=== PATIENT | male | born 1945 | race Caucasian/White ===

== ENCOUNTER 2020-11-13 12:39 | Emergency (ER) | payer MEDICARE ==
--- NOTE | 2020-11-13 13:42 | EDM.PDOC ---
ED HPI GENERAL MEDICAL PROBLEM - General Chief Complaint: ENT Problem Stated Complaint: SORE THROAT,TIRED Time Seen by Provider: 11/13/20 13:25 Source of Information: Reports: Patient History Limitations: Reports: Other (incomplete records) - History of Present Illness INITIAL COMMENTS - FREE TEXT/NARRATIVE: 75 yo male presents with a cough that is occasionally productive, a sore throat that is worse with coughing, no fever, and mild nasal congestion. No fever or SOB. Sx's slowly getting worse over the past couple of weeks. He has not been seen in the clinic for this. Now has some bilat eye redness. No sneezing. Onset: Gradual Duration: Week(s): (2), Getting Worse Location: Reports: Face, Neck, Chest Quality: Reports: Burning (with coughing) Severity: Mild Improves with: Reports: Medication Worsens with: Reports: Other (time) Context: Reports: Other (see HPI) Associated Symptoms: Reports: Cough. Denies: Chest Pain, Fever/Chills, Shortness of Breath Treatments FREIGHT FLAGMAN: Reports: Other (see below) (none) - Related Data Allergies Allergy/AdvReac Type Severity Reaction Status Date / Time No Known Allergies Allergy Verified 11/13/20 13:44 ED ROS ENT - Review of Systems Review Of Systems: See Below Constitutional: Reports: No Symptoms HEENT: Reports: Eye Discharge (with redness), Rhinitis (mostly clear), Throat Pain. Denies: Ear Discharge, Ear Pain, Nosebleed Respiratory: Reports: Cough, Sputum. Denies: Shortness of Breath, Wheezing, Pleuritic Chest Pain, Hemoptysis Cardiovascular: Reports: No Symptoms GI/Abdominal: Reports: No Symptoms Skin: Reports: No Symptoms Neurological: Reports: No Symptoms ED EXAM, ENT - Physical Exam Exam: See Below Exam Limited By: No Limitations General Appearance: Alert, WD/WN, No Apparent Distress Eye Exam: Bilateral Eye: Conjunctival Injection (slight yellow discharge is present) Ears: Normal External Exam, Normal Canal, Hearing Grossly Normal, Normal TMs Nose: Normal Inspection, No Blood, Clear Rhinorrhea Mouth/Throat: Normal Inspection, Normal Lips, Normal Oropharynx Head: Atraumatic, Normocephalic Neck: Normal Inspection Respiratory/Chest: No Respiratory Distress, Lungs Clear, Normal Breath Sounds, No Accessory Muscle Use Cardiovascular: Regular Rate, Rhythm, No Edema Extremities: Normal Inspection Neurological: Alert, Oriented, CN II-XII Intact, Normal Cognition, No Motor/Sensory Deficits Psychiatric: Normal Affect, Normal Mood Skin: Warm, Dry, Intact, Normal Color, No Rash Course - Vital Signs Last Recorded V/S: Last Vital Signs Temp 36.7 C 11/13/20 13:45 Pulse 104 H 11/13/20 13:45 Resp 17 11/13/20 13:45 BP 149/86 H 11/13/20 13:45 Pulse Ox 96 11/13/20 13:14 - Orders/Labs/Meds Labs: Laboratory Tests 11/13/20 11/13/20 Range/Units 13:37 13:54 WBC 9.2 (4.5-11.0) K/uL RBC 4.24 L (4.30-5.90) M/uL Hgb 13.3 (12.0-15.0) g/dL Hct 40.3 (40.0-54.0) % MCV 95 (80-98) fL MCH 31 (27-31) pg MCHC 33 (32-36) % Plt Count 213 (150-400) K/uL SARS CoV-2 RNA Rapid VINNY Negative Departure - Departure Time of Disposition: 14:43 Disposition: Home, Self-Care 01 Condition: Good Clinical Impression: Acute sinusitis Qualifiers: Sinusitis location: unspecified location Recurrence: non-recurrent Qualified Code(s): J01.90 - Acute sinusitis, unspecified - Discharge Information *PRESCRIPTION DRUG MONITORING PROGRAM REVIEWED*: Not Applicable *COPY OF PRESCRIPTION DRUG MONITORING REPORT IN PATIENT AUDREY: Not Applicable Instructions: Sinusitis, Adult, [id number] Referrals: Natalia Rowe PA-C [Primary Care Provider] - Forms: ED Department Discharge Additional Instructions: Take Amoxicillin every 12 hrs until gone. Recheck with your provider in a week, call for an appt. Sepsis Event Note (ED) - Focused Exam Vital Signs: Vital Signs Temp Pulse Resp BP Pulse Ox 11/13/20 13:45 36.7 C 104 H 17 149/86 H 11/13/20 13:14 36.7 C 104 H 17 149/86 H 96
== END 2020-11-13 14:56 | disposition home or self-care (01) ==
LOC: JP.ED 12:39
DX: J01.90 Acute sinusitis, unspecified (principal); Z20.822 Contact with and (suspected) exposure to COVID-19
CPT/HCPCS: 36415; 85027; 99283; U0002

== ENCOUNTER 2025-01-07 14:38 | Emergency (ER) | payer MEDICARE ==
[2025-01-07] MEDS ORDERED: Sodium Chloride 0.9% 10 ML Syringe FLUSH PRN (15:23)
[2025-01-07] MEDS ORDERED: Iopamidol 755 Mg/ML 100 ML Bottle IV SCH ×2 (15:30)
[2025-01-07 15:39] LABS: BASOPHILS ABSOLUTE AUTO 0.02 K/uL (0.00-0.10); BASOPHILS PERCENT AUTO 0.3 % (0.1-1.3); EOSINOPHILS ABSOLUTE AUTO 0.11 K/uL (0.00-0.40); EOSINOPHILS PERCENT AUTO 1.6 % (0.0-5.4); IMMATURE GRAN ABSOLUTE AUTO 0.02 K/uL (0.00-0.23); IMMATURE GRAN PERCENT AUTO 0.3 % (0.0-0.7); LYMPHOCYTES ABSOLUTE AUTO 1.90 K/uL (0.8-3.3); LYMPHOCYTES PERCENT AUTO 27.9 % (11.4-47.7); MONOCYTES ABSOLUTE AUTO 1.09 K/uL (0.20-0.90); MONOCYTES PERCENT AUTO 16.0 % (3.3-12.6); NEUTROPHILS ABSOLUTE AUTO 3.66 K/uL (1.0-7.6); NEUTROPHILS PERCENT AUTO 53.9 % (40.0-78.1); PLATELET COUNT,PLT 169 K/uL (130-375); RED BLOOD CELL COUNT 4.42 M/uL (4.14-5.76); WHITE BLOOD CELL COUNT,WBC 6.8 K/uL (3.2-11.0)
[2025-01-07 16:02] LABS: INR 1.0; PTT,PARTIAL THROMBOPLSTIN TIME 22.7 sec (21.8-27.3)
[2025-01-07 16:06] LABS: A/G RATIO 1.1 (1.2-2.2); ALANINE AMINOTRANSFERASE,ALT 33 U/L (12-78); ASPARTATE AMNIOTRANSFERASE,AST 21 U/L (15-37); BILIRUBIN TOTAL 0.4 mg/dL (0.2-1.0); BLOOD UREA NITROGEN,BUN 22 mg/dL (7-18); CARBON DIOXIDE,CO2 26 mmol/L (21-32); CHLORIDE,CL 102 mmol/L (100-108); CREATININE 1.2 mg/dL (0.8-1.3); EST CRCL DRUG DOSING (CG) 53.16 mL/min; ESTIMATED GFR 62 mL/min (>60); GLUCOSE RANDOM 114 mg/dL (74-106); POTASSIUM,K 4.2 mmol/L (3.6-5.2); PROTEIN TOTAL,TP 7.1 g/dL (6.4-8.2); SODIUM,NA 137 mmol/L (140-148)
[2025-01-07] MEDS: Sodium Chloride 0.9% 10 ML Syringe FLUSH ONE (16:09)
[2025-01-07] MEDS: Iopamidol 755 Mg/ML 100 ML Bottle IV STA (16:09)
== END 2025-01-07 18:17 | disposition home or self-care (01) ==
LOC: JP.ED 14:38
DX: I65.23 Occlusion and stenosis of bilateral carotid arteries (principal); I25.10 Atherosclerotic heart disease of native coronary artery without angina pectoris; E78.00 Pure hypercholesterolemia, unspecified; I10 Essential (primary) hypertension; I25.2 Old myocardial infarction; Z95.1 Presence of aortocoronary bypass graft; Z79.899 Other long term (current) drug therapy; Z79.02 Long term (current) use of antithrombotics/antiplatelets
CPT/HCPCS: 36415; 70450; 70496; 70498; 80053; 84484; 85025; 85610; 85730; 93005; 99285; A9270; Q9967